=== PATIENT | male | born 1980 | race Caucasian/White ===

== ENCOUNTER 2020-08-10 01:42 | Emergency (ER) | payer OTHER, SELFPAY ==
[2020-08-10 01:51] VITALS: BP 116/73; PULSE 84; RESP 20; TEMP 37.1; O2SAT 97; BMI 27.8
--- NOTE | 2020-08-10 02:25 | ECG_ITS ---
Test Reason : CHEST PAIN Blood Pressure : / mmHG Vent. Rate : 068 BPM Atrial Rate : 068 BPM P-R Int : 134 ms QRS Dur : 086 ms QT Int : 374 ms P-R-T Axes : 012 043 034 degrees QTc Int : 397 ms Normal sinus rhythm Normal ECG When compared with ECG of 09-DEC-2017 23:05, Premature atrial complexes are no longer Present Vent. rate has decreased BY 46 BPM Borderline criteria for Anterior infarct are no longer Present ST no longer depressed in Inferior leads Nonspecific T wave abnormality has replaced inverted T waves in Inferior leads Referred By: Wendi Palacio Electronically Signed By:Jack Zavala
--- NOTE | 2020-08-10 02:25 | XR_ITS ---
EXAMINATION: XR CHEST CLINICAL INFORMATION: Cough COMPARISON: 12/10/2016 TECHNIQUE: Frontal view of the chest was obtained. FINDINGS: The lungs are clear with no focal consolidation. No evidence of pneumothorax, pulmonary edema, or pleural effusions. The cardiomediastinal silhouette is unremarkable. No acute osseous findings. XR/XR chest 1V IMPRESSION: No acute cardiopulmonary findings.
--- NOTE | 2020-08-10 02:56 | ED.GENADULT ---
HPI - General Adult General Chief complaint: General Medical Stated complaint: Sore Throat/Nausea/Chest Pain Time Seen by Provider: 08/10/20 02:04 Source: patient Mode of arrival: ambulatory History of Present Illness HPI narrative: This is a 40-year-old male with significant cardiac history with 3 stents in the LAD who presents with viral illness like symptoms with chills, sore throat, cough and is a current every day smoker. He states that he regularly gets tested for COVID but said that he began feeling more unwell since yesterday and states that he thinks he has ?bronchitis?. 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 Related Data Allergies Allergy/AdvReac Type Severity Reaction Status Date / Time No Known Allergies Allergy Verified 08/10/20 01:44 [No Known Allergies*] Review of Systems Review of Systems: Pertinent positives and negatives as stated in HPI 10 point review of systems otherwise negative. PMFSH Past Medical History Source: nursing notes reviewed Medical History HTN (hypertension) Surgical History Stented coronary artery Social History Social History Alcohol intake: never Smoking Status: Current every day smoker Smoked in Last 30 Days: Yes Use of substances other than those prescribed or required for medical reasons: Yes Substance Use Type: Marijuana Substance Use Frequency: Chronic Longstanding Last Used Substance: Hours (ago) Any prior treatment program specific to substance use: No Advance Directives: No Physical Exam Vital Signs: Vital Signs: Last Vital Signs Temp 98.6 F 08/10/20 03:58 Pulse 80 08/10/20 03:58 Resp 20 08/10/20 03:58 BP 118/72 08/10/20 03:58 Pulse Ox 97 08/10/20 03:58 Body Mass Index 27.8 VITAL SIGNS: Reviewed. GENERAL: Patient smells strongly of marijuana, well developed, well nourished, in no acute distress. HEAD: Normocephalic/atraumatic, EYES: PERRLA, EOMI EARS: Ext canals without abnormality, TMs non-bulging and non-erythematous NOSE: Nares patent bilateral OROPHARYNX: no oral lesions noted, posterior pharynx clear and non-erythematous without noted tonsillar enlargement/erythema/exudates NECK: Supple, no adenopathy LUNGS: Normal breath sounds. No adventitious sounds or accessory muscle use. SpO2<97> CARDIOVASCULAR: Regular rate and rhythm without noted murmurs, ABDOMEN: Soft, non-tender, non-distended with bowel sounds. SKIN: Inspection of the skin reveals no rashes NEUROLOGIC: Alert and oriented x 4. Course Course Course Narrative: This is a 40-year-old male with history and clinical presentation suggestive of possible viral illness versus bronchitis, and due to patient's underlying history will ensure that there are no identifiable cardiopulmonary etiologies for his presenting symptoms in addition to obtaining a COVID-19 swab. All investigations were reviewed and there were no acute findings to include COVID-19 testing was negative. Patient was informed of all results and discharged home in stable condition and stated he was feeling better. Medical Decision Making Lab Data Result diagrams: 08/10/20 02:46 08/10/20 02:46 Labs: Lab Results 08/10/20 08/10/20 08/10/20 Range/Units 02:46 02:46 02:46 WBC 7.3 (4.8-10.8) X10*3/uL RBC 4.60 (4.60-5.80) X10*6/uL Hgb 14.0 (14.0-18.0) g/dl Hct 41.7 L (42-52) % MCV 90.7 (80-98) fL MCH 30.4 (27.0-33.0) pg MCHC 33.6 (31.0-36.0) g/dl RDW 12.2 (11.0-16.0) % Plt Count 129 L (160-400) X10*3/uL MPV 11.5 (9.4-12.4) fL Immature Gran % (Auto) 0.3 (0.0-0.4) % Neut % (Auto) 63.7 (45-73) % Lymph % (Auto) 21.7 (20-40) % [place] % (Auto) 9.9 (2-11) % Eos % (Auto) 4.1 H (0-4) % Baso % (Auto) 0.3 (0-2) % Lymph # (Auto) 1.6 (1.2-4.9) X10*3/uL [place] # (Auto) 0.7 (0.1-1.2) X10*3/uL Eos # (Auto) 0.3 (0.0-0.4) X10*3/uL Baso # (Auto) 0.0 (0.0-0.2) X10*3/uL Abs Immat Gran (auto) 0.02 (0.00-0.03) X10*3/uL Absolute Neuts (auto) 4.6 (2.0-8.3) X10*3/uL Absolute Nucleated RBC 0.000 (0.0-0.012) X10*3/uL Nucleated RBC % (auto) 0.0 (0.0-0.2) /100WBC Smear Tech's Comments VERIFIED Sodium 140 (135-145) mmol/L Potassium 4.0 (3.3-5.1) mmol/l Chloride 107 (96-108) mmol/L Carbon Dioxide 24 (22-29) mmol/L Anion Gap 13 (12-20) BUN 14 (9-16) mg/dL Creatinine 0.93 (0.5-1.4) mg/dL Estim Creat Clear Calc 124.0 Estimated GFR > 60 Random Glucose 98 (60-115) mg/dL Calcium 8.6 (8.4-10.2) mg/dL Total Bilirubin 0.6 (0.0-1.0) mg/dL AST 19 (5-37) U/L ALT 29 (0-40) U/L Alkaline Phosphatase 65 (39-117) U/L Troponin I High Sens 3.7 (<3.5-35.0) ng/L Total Protein 6.9 (6.5-8.0) g/dL Albumin 4.3 (3.5-5.0) g/dL Coronavirus (PCR) (Negative) Influenza Type A (PCR) (Negative) Influenza Type B (PCR) (Negative) RSV RNA Qual (PCR) (Negative) 08/10/20 Range/Units 02:46 WBC (4.8-10.8) X10*3/uL RBC (4.60-5.80) X10*6/uL Hgb (14.0-18.0) g/dl Hct (42-52) % MCV (80-98) fL MCH (27.0-33.0) pg MCHC (31.0-36.0) g/dl RDW (11.0-16.0) % Plt Count (160-400) X10*3/uL MPV (9.4-12.4) fL Immature Gran % (Auto) (0.0-0.4) % Neut % (Auto) (45-73) % Lymph % (Auto) (20-40) % [place] % (Auto) (2-11) % Eos % (Auto) (0-4) % Baso % (Auto) (0-2) % Lymph # (Auto) (1.2-4.9) X10*3/uL [place] # (Auto) (0.1-1.2) X10*3/uL Eos # (Auto) (0.0-0.4) X10*3/uL Baso # (Auto) (0.0-0.2) X10*3/uL Abs Immat Gran (auto) (0.00-0.03) X10*3/uL Absolute Neuts (auto) (2.0-8.3) X10*3/uL Absolute Nucleated RBC (0.0-0.012) X10*3/uL Nucleated RBC % (auto) (0.0-0.2) /100WBC Smear Tech's Comments Sodium (135-145) mmol/L Potassium (3.3-5.1) mmol/l Chloride (96-108) mmol/L Carbon Dioxide (22-29) mmol/L Anion Gap (12-20) BUN (9-16) mg/dL Creatinine (0.5-1.4) mg/dL Estim Creat Clear Calc Estimated GFR Random Glucose (60-115) mg/dL Calcium (8.4-10.2) mg/dL Total Bilirubin (0.0-1.0) mg/dL AST (5-37) U/L ALT (0-40) U/L Alkaline Phosphatase (39-117) U/L Troponin I High Sens (<3.5-35.0) ng/L Total Protein (6.5-8.0) g/dL Albumin (3.5-5.0) g/dL Coronavirus (PCR) NEGATIVE (Negative) Influenza Type A (PCR) NEGATIVE (Negative) Influenza Type B (PCR) NEGATIVE (Negative) RSV RNA Qual (PCR) NEGATIVE (Negative) Discharge Plan Discharge Clinical Impression: Viral syndrome Patient Disposition: Home, Self-Care Instructions: Viral Syndrome (ED) Additional Instructions: Please do not hesitate to return to the emergency department should you experience any worsening of your symptoms. Referrals: Physician,Unknown [Primary Care Provider] - 2 days
[2020-08-10 02:57] LABS: Imm Gran Abs Auto 0.02 X10*3/uL (0.00-0.03); Imm Gran Pct Auto 0.3 % (0.0-0.4); MANUAL DIFF FLAG SCAN; PLT CLUMP 1; Red Cell Distribution Width 12.2 % (11.0-16.0); SCAN SMEAR FLAG 1
[2020-08-10 02:58] LABS: Basophils Percent Auto 0.3 % (0-2); Eosinophils Absolute Auto 0.3 X10*3/uL (0.0-0.4); Eosinophils Percent Auto 4.1 % (0-4); Hematocrit 41.7 % (42-52); Lymphocytes Absolute Auto 1.6 X10*3/uL (1.2-4.9); Lymphocytes Percent Auto 21.7 % (20-40); Mean Corpuscular HGB Conc 33.6 g/dl (31.0-36.0); Mean Corpuscular Hemoglobin 30.4 pg (27.0-33.0); Mean Corpuscular Volume 90.7 fL (80-98); Mean Platelet Volume 11.5 fL (9.4-12.4); Monocytes Absolute Auto 0.7 X10*3/uL (0.1-1.2); Monocytes Percent Auto 9.9 % (2-11); Neutrophils Absolute Auto 4.6 X10*3/uL (2.0-8.3); Neutrophils Percent Auto 63.7 % (45-73); Platelet Count 129 X10*3/uL (160-400); White Blood Count 7.3 X10*3/uL (4.8-10.8)
[2020-08-10 03:02] LABS: SLIDE REVIEW VERIFIED
[2020-08-10 03:18] LABS: Alanine Aminotransferase 29 U/L (0-40); Albumin Level 4.3 g/dL (3.5-5.0); Alkaline Phosphatase 65 U/L (39-117); Anion Gap 13 (12-20); Aspartate Amino Transferase 19 U/L (5-37); Bilirubin Total 0.6 mg/dL (0.0-1.0); Blood Urea Nitrogen 14 mg/dL (9-16); Calcium 8.6 mg/dL (8.4-10.2); Carbon Dioxide 24 mmol/L (22-29); Chloride 107 mmol/L (96-108); Estimated Glomerular Filt Rate > 60; Glucose Random 98 mg/dL (60-115); Sodium 140 mmol/L (135-145); Total Protein 6.9 g/dL (6.5-8.0)
[2020-08-10 03:20] LABS: Troponin-I High Sensitivity 3.7 ng/L (<3.5-35.0)
[2020-08-10 03:58] VITALS: BP 118/72; PULSE 80; RESP 20; TEMP 37; O2SAT 97
[2020-08-10 04:26] LABS: Influenza A PCR NEGATIVE (Negative); Influenza B PCR NEGATIVE (Negative); Resp Syncy Virus RNA Qual PCR NEGATIVE (Negative); SARS COV2 PCR INHOUSE NEGATIVE (Negative)
--- NOTE | 2020-08-10 05:08 | PC.NURSE ---
pt bp low pt given water at bedside and encouraged to drink.
[2020-08-10 06:07] VITALS: BP 138/81; PULSE 78; RESP 18; O2SAT 98
== END 2020-08-10 06:07 | disposition home or self-care (01) ==
PROVIDERS: Emergency Provider Student in an Organized Health Care Education/Training Program
DX: B34.9 Viral infection, unspecified (principal); Z20.822 Contact with and (suspected) exposure to COVID-19; I10 Essential (primary) hypertension; F17.200 Nicotine dependence, unspecified, uncomplicated
CPT/HCPCS: 0241U; 36415; 71045; 80053; 84484; 85025; 93005; 99283; 99284

== ENCOUNTER 2021-10-30 05:26 | Emergency (ER) | payer SELFPAY ==
[2021-10-30 05:33] VITALS: BP 139/73; PULSE 76; RESP 16; TEMP 36.5; O2SAT 100; BMI 28.3
[2021-10-30 05:59] LABS: Influenza A Negative (Negative); Influenza B2 Negative (Negative)
[2021-10-30 06:03] LABS: COVID-19 Test Positive (Negative); IDNOW Serial# 16C4AD1C
--- NOTE | 2021-10-30 07:17 | ED.GENADULT ---
HPI - General Adult General Chief complaint: General Medical Stated complaint: chills, headache, stomach & body aches Time Seen by Provider: 10/30/21 07:17 Source: patient Mode of arrival: ambulatory Limitations: no limitations History of Present Illness HPI narrative: 41-year-old male came in for evaluation of upper respiratory symptoms. 2 days of generalized body ache, headache, congestion, fever and chills, patient did not receive COVID vaccination, no exposure to a sick contact, no recent travel. Related Data Allergies Allergy/AdvReac Type Severity Reaction Status Date / Time No Known Allergies Allergy Verified 08/10/20 01:44 [No Known Allergies*] Review of Systems Review of Systems: All other systems are reviewed and are negative Constitutional: Reports as per HPI and Reports no additional constitutional complaints Eyes: Reports as per HPI and Reports no additional eye complaints Reports system reviewed and no additional complaints, except as documented Cardiovascular: Reports as per HPI and Reports no additional cardiovascular complaints Respiratory: Reports as per HPI and Reports no additional respiratory complaints Gastrointestinal: Reports as per HPI and Reports no additional gastrointestinal complaints Genitourinary: Reports no additional female genitourinary complaints Musculoskeletal: Reports no additional musculoskeletal complaints Skin/Breast: Reports system reviewed and no additional complaints, except as docu Psychiatric: Reports no additional psychiatric complaints Endocrine: Reports no additional endocrine complaints Hematologic/Lymphatic: Reports no additional hematologic/lymphatic complaints Allergic/Immunologic: Reports no additional allergic/immunologic complaints Reports system reviewed and no additional complaints, except as documented and Reports Abnormal speech present [facility] Past Medical History Medical History HTN (hypertension) Myocardial infarct, old Surgical History Stented coronary artery Social History Social History Alcohol intake: never Substance Use Type: Marijuana Advance Directives: No Advance Directives Information Provided: Yes Physical Exam ED Vital Signs: Vital Signs - 24 hr 10/30/21 05:33 Temperature 97.7 F Pulse Rate 76 Respiratory Rate 16 Blood Pressure 139/73 Pulse Oximetry 100 BMI result Body Mass Index 28.3 Vital signs have been reviewed as appeared to be correct. Blood pressure normal. Heart rate normal. Respiration rate normal. Temperature normal. Oxygen saturation normal. Appearance: Alert. Oriented X3. No acute distress. Head: Normal external exam. Normocephalic. Atraumatic. No Em signs noted. No raccoon eyes noted Eyes: PERRLA. EOMI. Conjunctiva and sclera normal. Eyelids normal. ENT: TM's Normal. Pharynx normal. Uvula midline. Moist mucous membranes. No trismus noted. No drooling noted. No muffled voice noted. Neck: Normal inspection. Neck supple. FROM. No adenopathy. Thyroid Normal. No meningeal signs. No neck mass noted. CVS: Normal heart rate and rhythm. Heart sound normal. No murmurs noted. Pulses normal throughout. Respiratory: No respiratory distress. Painless inspiration. Breath sounds normal. No wheezes/rales/rhonchi noted. Chest nontender. No accessory muscle usage noted or decreased air movement noted. Abdomen: Soft and nontender. Bowel sounds normal in all 4 quadrants. No distention noted. No organomegaly noted. No visible injury noted. Back: No CVA tenderness. Full range of motion noted. Skin: Skin warm and dry. Normal skin color. Normal skin turgor. No rashes/lesions/lacerations noted. Extremities: No lower extremity edema. Extremities exhibit normal range of motion. Extremities nontender. Neuro: Oriented X 3. Cranial nerve exam: II-XII are grossly intact No motor deficit. No sensory deficit. Reflexes normal. Course Course Course Narrative: Assessment and plan. 41-year-old male came in with a viral symptoms, patient tested positive for COVID 19, no respiratory distress, stable vital signs, oxygen saturation is 100% on room air. advised to use social distancing, face mask, frequent handwashing, quarantine for 10 days. Medical Decision Making Lab Data Lab results reviewed: Yes I reviewed the patient's lab results. Labs: Lab Results 10/30/21 10/30/21 Range/Units 05:39 05:39 COVID-19 (TERRELL) Positive A (Negative) COVID-19 Clin Com See Note Influenza Type A (ROMMEL) Negative (Negative) Influenza Type B (ROMMEL) Negative (Negative) Influenza A & B Note See Note Discharge Plan Discharge Clinical Impression: COVID-19 virus infection Patient Disposition: Home, Self-Care Instructions: Covid-19 Viral Syndrome and Novel Coronavirus (ED) Hey/Ath Referrals: Sera Palmer PA-C [Primary Care Provider] - Stand Alone Forms: Work/School Release
== END 2021-10-30 08:50 | disposition home or self-care (01) ==
PROVIDERS: Emergency Provider Emergency Medicine; PCP Physician Assistant Medical
DX: U07.1 COVID-19 (principal); R51.9 Headache, unspecified; M79.10 Myalgia, unspecified site
CPT/HCPCS: 87502; 87635; 99283

== ENCOUNTER 2023-05-13 07:09 | Emergency (ER) | payer OTHER, SELFPAY ==
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
[2023-05-13 07:45] VITALS: BP 127/88; PULSE 90; RESP 17; TEMP 36.3; O2SAT 97; BMI 28.6
[2023-05-13] MEDS: Ketorolac Tromethamine 15 MG/ML VIAL IM (08:28)
[2023-05-13] MEDS: Cyclobenzaprine HCl 5 MG TABLET PO (08:28)
== END 2023-05-13 08:58 | disposition home or self-care (01) ==
PROVIDERS: Emergency Provider Emergency Medicine; PCP Physician Assistant Medical
DX: S16.1XXA Strain of muscle, fascia and tendon at neck level, initial encounter (principal); V44.6XXA Car passenger injured in collision with heavy transport vehicle or bus in traffic accident, initial encounter; Y93.89 Activity, other specified; Y92.410 Unspecified street and highway as the place of occurrence of the external cause; Y99.9 Unspecified external cause status
CPT/HCPCS: 96372; 99284; J1885

== ENCOUNTER 2023-09-23 06:09 | Emergency (ER) | payer OTHER, SELFPAY ==
[2023-09-23 06:30] VITALS: BP 162/96; PULSE 95; RESP 20; TEMP 36.9; O2SAT 99; BMI 26.2
--- NOTE | 2023-09-23 07:21 | ED.GENADULT ---
HPI - General Adult General Chief complaint: Back Pain/Injury Stated complaint: back pain Time Seen by Provider: 09/23/23 07:20 Source: patient Mode of arrival: ambulatory Limitations: no limitations History of Present Illness HPI narrative: Patient is a 43 year old assigned male at with a medical history of MD and HTN presenting to the emergency department today with low back pain. Patient states that 5 days ago he lifted something heavy at work and aggravated his back. Patient denies any dizziness, lightheadedness, abdominal pain, nausea, vomiting, fever, chills, blurry vision, double vision, loss of vision, chest pain, difficulty breathing, shortness of breath, night sweats, pain with urination, increased urinary frequency, increased urinary urgency, blood in his urine or stool, syncope or a near syncopal episode, recent trauma or falls, bowel incontinence, bladder incontinence, bowel retention, bladder retention, or any other complaints at this time. Onset (ago): day(s) (5) Location: back Radiation: back Severity: mild Severity scale (1-10): 3 Quality: aching and dull Pain Consistency: constant Relieving factors: none Exacerbating factors: none Associated symptoms: denies other symptoms Treatments prior to arrival: none Related Data Previous Rx's Medication Instructions Recorded cyclobenzaprine 5 mg tablet 5 mg PO TID PRN muscle spasm 7 05/13/23 days #21 tabs cyclobenzaprine 5 mg tablet 5 mg PO TID PRN muscle spasm 7 09/23/23 days #21 tabs Allergies Allergy/AdvReac Type Severity Reaction Status Date / Time ibuprofen [From Motrin] Allergy Unknown Verified 09/23/23 08:06 Review of Systems Constitutional: Constitutional: Reports no additional constitutional complaints, Denies chills, Denies fever(s) and Denies night sweats Eyes: Eyes: Reports no additional eye complaints, Denies blurry vision, Denies change in vision, Denies diplopia, Denies eye discharge, Denies loss of vision and Denies eye pain ENT: Denies dizziness Cardiovascular: Cardiovascular: Reports no additional cardiovascular complaints, Denies chest pain, Denies lightheadedness, Denies Loss of Consciousness and Denies dyspnea Respiratory: Respiratory: Reports no additional respiratory complaints and Denies dyspnea Gastrointestinal: Gastrointestinal: Reports no additional gastrointestinal complaints, Denies abdominal pain, Denies melena, Denies hematochezia, Denies change in bowel habits and Denies change in stool character Genitourinary: Genitourinary: Reports no additional male genitourinary complaints, Denies hematuria, Denies oliguria, Denies difficulty urinating, Denies dysuria, Denies urinary frequency, Denies urinary hesitancy, Denies urinary incontinence and Denies urinary urgency Musculoskeletal: Musculoskeletal: Reports no additional musculoskeletal complaints, Reports back pain, Denies numbness and Denies tingling Neurologic: Denies dizziness, Denies loss of vision, Denies numbness and Denies tingling Psychiatric: Psychiatric: Reports no additional psychiatric complaints Endocrine: Endocrine: Reports no additional endocrine complaints Hematologic/Lymphatic: Hematologic/Lymphatic: Reports no additional hematologic/lymphatic complaints Allergic/Immunologic: Allergic/Immunologic: Reports no additional allergic/immunologic complaints PMFSH Past Medical History Attestation statement: The following information was validated with the patient. Source: old records reviewed and nursing notes reviewed Medical History Myocardial infarct, old HTN (hypertension) Surgical History Stented coronary artery Social History Social History Alcohol intake: never Smoked in Last 30 Days: Yes Use of substances other than those prescribed or required for medical reasons: No Substance Use Type: Marijuana Advance Directives: No Advance Directives Information Provided: No Physical Exam ED Vital Signs: Vital Signs - 24 hr 09/23/23 06:30 Temperature 98.4 F Pulse Rate 95 Respiratory Rate 20 Blood Pressure 162/96 H Pulse Oximetry 99 Oxygen Delivery Method Room Air BMI result Body Mass Index 26.2 Const General: cooperative, no acute distress, alert and awake Nutritional Appearance: well nourished Orientation/consciousness: patient oriented x3 Limitations: no limitations HENMT Head: Yes normal to inspection and Yes atraumatic Ears: hearing grossly normal bilaterally and external ears normal General nose exam: Normal external nose present, no nasal discharge noted and no epistaxis Face and sinus: Yes normal facial exam, No abrasion and No laceration Mouth: Normal oral and palatal mucosa present, no drooling and no muffled voice Eyes General: appearance normal, both eyes and all related structures Periorbital: periorbital findings normal Eyelids: Yes eyelids normal Conjunctivae: conjunctivae normal Pupils: Equal, round and reactive pupils present EOM: EOMs intact bilaterally Neck Neck: Yes normal visual inspection, Yes full ROM and Yes no lymphadenopathy Chest Chest palpation & inspection: normal inspection of the chest Resp Effort & Inspection: normal respiratory effort and able to speak in complete sentences GI Inspection: Yes normal to inspection Neuro General: patient oriented x3 and moves all extremities Cranial nerves: Yes Equal, round and reactive pupils present Cognition (Neuro): normal cognition Motor exam (neuro): 5/5 motor strength present throughout Sensory Exam: Normal double simultaneous stimulation for sensation Coordination: [id number] test normal Extrem General: Yes normal to inspection, Yes full ROM and Yes capillary refill normal Psych Appearance: grossly normal Mental Status: mental status grossly normal Affect: normal affect Attitude: cooperative Thought process: Normal thought process present Thought content: Normal thought content present Insight: Good insight present (Psych) Medications Administered Discontinued Medications Generic Name Dose Route Start Last Admin Trade Name Freq PRN Reason Stop Dose Admin Cyclobenzaprine HCl 5 mg 09/23/23 07:43 09/23/23 08:06 Cyclobenzaprine Hcl 5 Mg Tablet PO 09/23/23 07:44 5 mg ONCE ONE Administration Medical Decision Making Medical Decision Making [facility] Narrative: Patient is a 43 year old assigned male at with a history of MD and HTN presenting to the emergency department today with low back pain. Patient's physical exam was unremarkable. I explained my physical exam findings to the patient. I answered all questions asked by the patient. Patient received flexeril which he stated helped his symptoms significantly. I stressed the importance of the patient taking his medication as prescribed. I stressed the importance of the patient following up with his primary care provider, orthopedics, and given this was a work place injury - work connection. I stressed the importance of the patient returning to the emergency department immediately if his symptoms were to worsen or if he were to develop any dizziness, shortness of breath, difficulty breathing, chest pain, blurry vision, loss of vision, nausea, vomiting, abdominal pain, fever, chills, or any other complaints. Patient [and the patient's] verbalized agreement and understanding with this treatment plan and discharge. Differential Diagnosis Differential Diagnoses: The differential diagnosis associated with the presentation includes Low back pain Lumbar strain Admission/Observation Consideration of admission/observation: Escalation of care including admission/observation considered Patient would have been admitted to the hospital had his clinical presentation warranted hospital admission. Tests considered The following testing was considered but not selected: I considered an x-ray of the lumbar spine however, given the patient's current clinical presentation and mechanism of injury, it is not warranted at this time. I discussed this with the patient who verbalized agreement and understanding with this. Prescription Management I considered prescription management with: Pain Medication (pain medication prescribed) Discharge Plan Discharge Clinical Impression: Strain of lumbar region Patient Disposition: Home, Self-Care Instructions: Back Pain (ED), Lower Back Exercises (ED) Additional Instructions: Follow up with your primary care provider, an orthopedic provider, and work connection. Return to the emergency department immediately if your symptoms worsen or if you develop any dizziness, shortness of breath, difficulty breathing, chest pain, blurry vision, loss of vision, nausea, vomiting, abdominal pain, fever, chills, back pain, or any other complaints. Prescriptions: New cyclobenzaprine 5 mg tablet 5 mg PO TID PRN (Reason: muscle spasm) 7 Days Qty: 21 0RF No Action cyclobenzaprine 5 mg tablet 5 mg PO TID PRN (Reason: muscle spasm) 7 Days Qty: 21 0RF Referrals: [facility] [place] Family Medicine [Provider Group] (Call to establish and follow up with a primary care provider. If you already have a primary care provider, please follow up with them.) [facility] [place] [facility] [Provider Group] (Call to establish and follow up with a primary care provider. If you already have a primary care provider, please follow up with them.) [facility] [place] Primary Care,Ruel [Provider Group] (Call to establish and follow up with a primary care provider. If you already have a primary care provider, please follow up with them.) [facility] [place] [facility] [Provider Group] (Call to establish and follow up with an orthopedic provider.) [facility] [Provider Group] (Given this was a work place injury, call to establish and follow up with work connection.) Stand Alone Forms: Work/School Release Interventions: ED Discharge Assessment Last Done: 09/23/23 08:22 Discharge Date/Time: 09/23/23 08:23 Print Language: Amharic
[2023-09-23] MEDS: Cyclobenzaprine HCl 5 MG TABLET PO (08:06)
== END 2023-09-23 08:23 | disposition home or self-care (01) ==
PROVIDERS: Emergency Provider Emergency Medicine Emergency Medical Services
DX: S39.012A Strain of muscle, fascia and tendon of lower back, initial encounter (principal); I10 Essential (primary) hypertension; X50.0XXA Overexertion from strenuous movement or load, initial encounter; X50.3XXA Overexertion from repetitive movements, initial encounter; Y93.9 Activity, unspecified; Y92.9 Unspecified place or not applicable; Y99.0 Civilian activity done for income or pay
CPT/HCPCS: 99283; 99284

== ENCOUNTER 2025-03-17 01:48 | Emergency (ER) | payer OTHER, SELFPAY ==
[2025-03-17 01:50] VITALS: BP 127/92; PULSE 87; RESP 20; TEMP 36.6; O2SAT 98; BMI 31.0
--- NOTE | 2025-03-17 02:14 | ED_ITS ---
HPI - General Adult General Chief complaint: Dental/Oral Stated complaint: right neck + mouth pain Time Seen by Provider: 03/17/25 02:07 Source: patient Mode of arrival: ambulatory Limitations: no limitations History of Present Illness ED Provider: Dr. Francisca Lugo HPI narrative: patient comes to the emergency room complaining of bilateral lymphadenopathy. Patient states that 1 week ago he was treated in [place] for a dental abscess with amoxicillin. Patient states that the dental pain is not as bad now, however, now he has bilateral lymphadenopathy. Denies any fever or chills at this time. Related Data Previous Rx's ?Medication ?Instructions ?Recorded cyclobenzaprine 5 mg tablet 5 mg PO TID PRN muscle spa sm 7 05/13/23 days #21 tabs cyclobenzaprine 5 mg tablet 5 mg PO TID PRN muscle spa sm 7 09/23/23 days #21 tabs acetaminophen 500 mg tablet 500 mg PO Q6H PRN fever or pain 03/17/25 #30 tabs Allergies Allergy/AdvReac Type Severity Reaction Status Date / Time ibuprofen (From Motrin) Allergy Unknown Verified 03/17/25 01:54 Review of Systems 2 Review of Systems: Constitutional : No Weight loss, No Fever, No Chills, No Night Sweats, No Fatigue, No Malaise ENT/Mouth : Complaining of dental pain that was treated with antibiotics in [place] a week ago, No Hearing loss, No Ear Pain, No Nasal Congestion, No Sinus Pain, No Hoarseness, No sore throat, No Rhinorrhea, No Swallowing Difficulty Eyes: No Eye Pain, No Swelling, No Redness, No Foreign Body, No Discharge, No Vision Changes Cardiovascular : No Chest Pain, No SOB, No Dyspnea on Exertion, No Orthopnea, No Edema, No Palpitations Respiratory : No Cough, No Sputum, No Wheezing, No Smoke Exposure, No Dyspnea Gastrointestinal : No Nausea, No Vomiting, No Diarrhea, No Constipation, No abdominal Pain, No Hematochezia, No Melena Genitourinary : no irregular bleeding, No Dysuria, No Urinary Frequency, No Hematuria, No Urinary Incontinence, No Urgency, No Flank Pain, No Urinary Flow Changes, No Hesitancy Musculoskeletal : No joint pain, No Myalgias, No Joint Swelling Skin : No Skin Lesions, No rash Neuro : No Weakness, No Numbness, No Paresthesias, No Loss of Consciousness, No Dizziness, No Headache Psych : No Anxiety/Panic, No Depression, No SI/HI/AH/VH, No Social Issues, Heme/Lymph: No Bruising, No Bleeding, complaining of bilateral neck Lymphadenopathy Endocrine : No Polyuria, No Polydipsia, No Temperature Intolerance PMF Past Medical History Medical History Myocardial infarct, old HTN (hypertension) Surgical History Stented coronary artery Social History Social History Alcohol intake: never Smoked in Last 30 Days: Yes Use of substances other than those prescribed or required for medical reasons: No Substance Use Type: Marijuana Advance Directives: No Do you have a plan to hurt others: No Plan Physical Exam ED Exam Exam: Appearance: Alert. Oriented X3. No acute distress. well-appearing Eyes: Pupils equal, round and reactive to light. ENT: Pharynx normal. salivary gland stone under the tongue Neck: Normal inspection. Neck supple. bilateral lymphadenopathy,. No crepitus CVS: Normal heart rate and rhythm. Pulses normal. Normal S1 and S2 Respiratory: No respiratory distress. Breath sounds normal. No Wheezing. No rales Abdomen: Soft and nontender. No rigidity. No distention. Skin: Skin warm and dry. Normal skin color. Normal skin turgor. Extremities: No lower extremity edema. No Lacerations. No Rash Neuro: Oriented X 3. No motor deficit. No sensory deficit. Moving all extremities. No slurred speech. CN 2 through 12 grossly intact Psych: calm, cooperative, normal affect Vital Signs: Vital Signs - 24 hr 03/17/25 01:50 Temperature 97.8 F Pulse Rate 87 Respiratory Rate 20 Blood Pressure 127/92 H Pulse Oximetry 98 Oxygen Delivery Method Room Air BMI result Body Mass Index 31.0 Course Course Course Narrative: patient was recently treated for a tooth infection in [place], given a week of treatment with the amoxicillin. Today complaining of bilateral lymphadenopathy We will obtain labs Medical Decision Making Medical Decision Making MDM Narrative: My interpretation of labs: No significant abnormality in patient's hematology and chemistry, serology is positive for COVID, negative for influenza and strep. This is likely the reason the patient is having lymphadenopathy. patient has no shortness of breath, no oxygen desaturation. Differential Diagnosis Differential Diagnoses: The differential diagnosis associated with the presentation includes ( As above) Lab Data MDM Lab Attestation statement: I reviewed the patient's lab results. 03/17/25 02:23 03/17/25 02:23 Labs: Lab Results 03/17/25 Range/Units 02:23 WBC 5.9 (4.8-10.8) X10*3/uL RBC 4.56 L (4.60-5.80) X10*6/uL Hgb 13.6 L (14.0-18.0) g/dl Hct 38.7 L (42.0-52.0) % MCV 84.9 (80.0-98.0) fL MCH 29.8 (27.0-33.0) pg MCHC 35.1 (31.0-36.0) g/dl RDW 12.5 (11.0-16.0) % Plt Count 154 L (160-400) X10*3/uL MPV 11.2 (9.4-12.4) fL Immature Gran % (Auto) 0.2 (0.0-0.4) % Neut % (Auto) 54.7 (45-73) % Lymph % (Auto) 33.5 (20-40) % [place] % (Auto) 7.7 (2-11) % Eos % (Auto) 3.6 (0-4) % Baso % (Auto) 0.3 (0-2) % Lymph # (Auto) 2.0 (1.2-4.9) X10*3/uL [place] # (Auto) 0.5 (0.1-1.2) X10*3/uL Eos # (Auto) 0.2 (0.0-0.4) X10*3/uL Baso # (Auto) 0.0 (0.0-0.2) X10*3/uL Abs Immat Gran (auto) 0.01 (0.00-0.03) X10*3/uL Absolute Neuts (auto) 3.2 (2.0-8.3) x10*3/uL Absolute Nucleated RBC 0.000 (0.0-0.012) X10*3/uL Nucleated RBC % (auto) 0.0 (0.0-0.2) /100WBC Sodium 139 (135-145) mmol/L Potassium 4.0 (3.3-5.1) mmol/L Chloride 110 H (96-108) mmol/L Carbon Dioxide 22 (22-29) mmol/L Anion Gap 11 L (12-20) BUN 19 H (9-16) mg/dL Creatinine 0.97 (0.5-1.4) mg/dL Estim Creat Clear Calc 118.8 Estimated GFR > 60 Random Glucose 98 (60-115) mg/dL Calcium 8.8 (8.4-10.2) mg/dL Total Bilirubin 0.5 (0.0-1.0) mg/dL Direct Bilirubin 0.1 (0.0-0.5) mg/dL AST 26 (5-37) U/L ALT 19 (0-40) U/L Alkaline Phosphatase 58 (39-117) U/L C-Reactive Protein 0.42 (< or = 0.50) mg/dL Total Protein 7.0 (6.5-8.0) g/dL Albumin 4.3 (3.5-5.0) g/dL COVID-19 (TERRELL) Positive A (Negative) COVID-19 Clin Com See Note Influenza Type A (ROMMEL) Negative (Negative) Influenza Type B (ROMMEL) Negative (Negative) Influenza A & B Note See Note S. pyogenes GrpA ROMMEL Negative (Negative) Discharge Plan Discharge Clinical Impression: COVID-19 virus infection, Lymphadenopathy Patient Disposition: Home, Self-Care Instructions: COVID-19 (Coronavirus Disease 2019) (ED) Additional Instructions: Please follow-up with your primary care physician tomorrow. If you have any worsening or new symptoms, please return to the emergency room or call 911 Prescriptions: New acetaminophen 500 mg tablet 500 mg PO Q6H PRN (Reason: fever or pain) Qty: 30 0RF No Action cyclobenzaprine 5 mg tablet 5 mg PO TID PRN (Reason: muscle spasm) 7 Days Qty: 21 0RF cyclobenzaprine 5 mg tablet 5 mg PO TID PRN (Reason: muscle spasm) 7 Days Qty: 21 0RF Stand Alone Forms: Work/School Release Print Language: Ukrainian
--- OUTSIDE RECORDS SUMMARY | 2025-03-17 02:19 | XMS_ITS | Encounter Summary ---
Author Organization [facility] Address [address] [place] [phone] Phone Care Team Providers Care Oracle Database Manager Name Role Phone Mercy Masterson MD Primary Care Provider [phone] Mercy Masterson MD Primary Care Provider Pcp, Unknown Primary Care Provider Unavailabl e Encounter Details Date Type Department Care Team (Late st Contact Info) Description 06/25/2018 Ancillary Orders Virtual Department [address] [place] [address] Kin Garcia MD [address] [place] [address] [phone] [email or web address] Solitary pulmonary nodule Social History Tobacco Use Types Packs/Day Years Used Date Smoking Tobacco: Every Day Cigarettes Smokeless Tobacco: Never Alcohol Use Standard Drinks/Week Comments No 0 (1 standard drink = 0.6 oz pur e alcohol) Sex and Gender Information Value Date Recorded Sex Assigned at Male 12/10/2017 5:49 AM EDT Legal Sex Male 9:19 PM EDT Gender Identity Male 12/10/2017 5:49 AM EDT Sexual Orientation Straight 12/10/2017 5: 49 AM EDT documented as of this encounter Plan of Treatment Not on file documented as of this encounter Visit Diagnoses Diagnosis Solitary pulmonary nodule documented in this encounter Additional Health Concerns Infection Onset Date Last Indicated Resolved Time CoV-Risk 07/03/2023 07/03/2023 07/14/2023 1:23 AM EST documented as of this encounter Care Teams Oracle Database Manager Relationship Specialty Start Date End Date Mercy Masterson MD [email or web address] PCP - General Family Medicine 11/17/17 11/16/19 Mercy Masterson MD [email or web address] PCP - General Family Medicine 11/17/19 07/02/23 Pcp, Unknown PCP - General 07/03/23 documented as of this encounter Additional Source Comments The information contained in this document represents components of the legal health record. It is not the complete legal health record.[facility]
--- OUTSIDE RECORDS SUMMARY | 2025-03-17 02:19 | XMS_ITS | Clinical Summary ---
Author Organization [facility] Address [address] [address] Phone Care Team Providers Care Development Architect Name Role Phone Pcp, Unknown Primary Care Provider Unavailabl e Allergies No known active allergies Medications nicotine (NICODERM CQ) 14 mg/[address] 1 patch onto the skin daily. 8 Active Additional Information Patient not taking.Reported on 07/03/2023 atorvastatin (LIPITOR) 80 MG tablet Take 1 tablet (80 mg total) by mouth daily. 8 Active Additional Information Patient not taking.Reported on 07/03/2023 clopidogrel (PLAVIX) 75 mg tablet Take 1 tablet (75 mg total) by mouth daily. 90 tablet 3 8 Active Additional Information Patient not taking.Reported on 07/03/2023 atorvastatin (LIPITOR) 80 MG tablet Take 1 tablet (80 mg total) by mouth daily. 30 tablet 11 8 Active Additional Information Patient not taking.Reported on 07/03/2023 lisinopril (PRINIVIL,ZESTR IL) 5 MG tablet Take 1 tablet (5 mg total) by mouth daily. 90 tablet 3 8 Active Additional Information Patient not taking.Reported on 07/03/2023 metoprolol succinate (TOPROL-XL) 25 MG 24 hr tablet Take 1 tablet (25 mg total) by mouth daily. 30 tablet 6 8 Active Additional Information Patient not taking.Reported on 07/03/2023 aspirin 81 MG EC tablet Take 1 tablet (81 mg total) by mouth daily. 8 Active Additional Information Patient not taking.Reported on 07/03/2023 azithromycin (ZITHROMAX) 250 MG tablet Take 2 tablets on day 1, then 1 tablet each day thereafter 6 tablet 3 Active Active Problems Problem Noted Date Diagnosed Date NSTEMI (non-ST elevated myocardial infarction) 0 12/10/2017 Assessment & Plan (12/10/2017 6:07 AM EDT): Cardiology was consulted in the ER -Hep Gtt -ASA -High Dose lipitor -Ca rodrigue / nitrates as pt just used cocaine bb is contraindicated. -Cards to follow querry stress vs. Cath vs obs given cocaine use. Social History Tobacco Use Types Packs/Day Years Used Date Smoking Tobacco: Every Day Cigarettes Smokeless Tobacco: Never Tobacco Cessation:Ready to Q uit: Yes; Counseling Given: Yes Alcohol Use Standard Drinks/Week Comments No 0 (1 standard drink = 0.6 oz pur e alcohol) Education Answer Date Recorded Are you interested in more education? Not on pepito e 11/08/2022 Are you concerned about learning? Not on file 11/08/2022 No 11/08/2022 No 11/08/2022 Digital Access Answer Date Recorded No 12/09/2022 No 12/09/2022 Reliable internet access at home? Not on file 12/09/2022 Device with a working camera? Not on file Intimate Partner Violence Answer Date R ecorded Are you denied basic needs s [facility] as food, clothing, or medical care? No 07/03/2023 In the past 12 months have y ou been in a relationship with a person who hurts, threatens, or tries to control you? No 07/03/2023 Are you denied basic needs s [facility] as food, clothing, or medical care? No 07/03/2023 In the past 12 months have y ou been in a relationship with a person who hurts, threatens, or tries to control you? No 07/03/2023 Sex and Gender Information Value Date Recorded Sex Assigned at Male 12/10/2017 5:49 AM EDT Legal Sex Male 9:19 PM EDT Gender Identity Male 12/10/2017 5:49 AM EDT Sexual Orientation Straight 12/10/2017 5: 49 AM EDT Last Filed Vital Signs Vital Sign Reading Time Taken Comments Blood Pressure 141/98 07/03/2023 9:49 AM EST Pulse 76 07/03/2023 9:49 AM EST Temperature 36.3 C (97.3 F) 07/03/2023 9:49 AM EST Respiratory Rate 20 07/03/2023 9:49 AM EST Oxygen Saturation 96% 07/03/2023 9:49 AM EST Inhaled Oxygen Concentration - - Weight 90.7 kg (200 lb) 07/03/2023 7:11 AM EST Height 177.8 cm (5' 10 ) 07/03/2023 7:11 AM EST Body Mass Index 28.7 07/03/2023 7:11 AM EST Plan of Treatment Health Maintenance Due Date Last Done Comments Adult Td,Tdap Booster 1982 DEPRESSION SCREENING 1994 SMOKING Hx and SMOKELESS TOBACCO SCREENING 1995 HEPATITIS C SCREENING 2000 HIV ONE-TIME SCREENING (18-6 5 YEARS) 2000 PNEUMOCOCCAL VACCINES (0-49 years) (1 of 2 - PCV) 2001 LIPID PANEL 12/10/2022 12/10/2017 CREATININE LEVEL 07/03/2024 07/03/2023, 12/10/2017 POTASSIUM LEVEL 07/03/2024 07/03/2023, 12/10/2017 INFLUENZA VACCINE (#1) 2025 COVID-19 VACCINE (1 - 2023-2 5 season) 2025 SCREENING FOR DIABETES 07/03/2026 07/03/2023 HEPATITIS A VACCINES Aged Out No long er eligible based on patient's age to complete this topic HIB VACCINES Aged Out No longer eligi ble based on patient's age to complete this topic MENINGOCOCCAL VACCINES (ACWY) Aged Out No longer eligible based on patient's age to complete this topic MENINGOCOCCAL VACCINES (B) Aged Out N o longer eligible based on patient's age to complete this topic Medical Devices Not on file Procedures Procedure Name Priority Date/Time Associated Diagnosis Comments BASIC METABOLIC PANEL STAT 07/03/2023 7:30 AM EST LIPID PANEL STAT 12/10/2017 6:18 AM EDT from Last 3 Months or Most Recently Relevant to Health Maintenance Results * (ABNORMAL) Basic metabolic panel (07/03/2023 7:30 AM EST) SODIUM 141 133 - 146 mmol/L [facility] CHLORIDE 105 96 - 108 mmol/L [facility] POTASSIUM 4.4 3.3 - 5.1 mmol/L [facility] CO2 26 21 - 35 mmol/L [facility] BUN 15 6 - 19 mg/dL [facility] CREATININE 1.00 0.5 - 1.5 mg/dL [facility] GLUCOSE 108(H) 70 - 99 mg/dL [facility] CALCIUM 9.5 8.4 - 10.3 mg/dL [facility] EGFR 97 >59 mL/min/1.7 3m2 [facility] Comment:Estimated glomerular filtration rate calculated using the CKD-EPI refit equation. ANION GAP 14 10 - 20 mmol/L [facility] Blood 07/03/2023 7:30 AM EST 07/03/2023 7:38 AM EST us Zack Fraser MD LAB BLOOD ORDERABLES Final Resu lt [address] [id number] * (ABNORMAL) Lipid panel (12/10/2017 6:18 AM EDT) HDL 26 mg/dL [facility] Comment: Interpretation: Risk Level Males Decreased >45 mg/dL Average 40-45 mg/dL Increased <40 mg/dL CHOLESTEROL 188 0 - 240 mg/dL [facility] TRIGLYCERIDES 201(H) 30 - 160 mg/dL [facility] LDL 122 50 - 129 mg/dL [facility] Comment: LDL levels in terms of risk for coronary heart disease: <100 mg/dL: Optimal 100-129 mg/dL: Near or above optimal 130-159 mg/dL: Borderline high 160-189 mg/dL: High >190 mg/dL: Very High CARDIAC RISK RATIO 7.2(H) 3.4 - 5.0 C [facility] Blood 12/10/2017 6:18 AM EDT 12/10/2017 6:45 AM EDT Miya Gutierrez MD LAB BLOOD ORDERABLES Final Result [address] [address] from Last 3 Months or Most Recently Relevant to Health Maintenance Insurance SAFETY NET PARTIAL PARTIAL NET PARTIAL HEALTH SAFETY NET PARTIAL HEALTH SAFETY NET PARTIAL HEALTH SAFETY NET PARTIAL HEALTH SAFETY NET PARTIAL HEALTH SAFETY NET PARTIAL HEALTH SAFETY NET PARTIAL Advance Directives For more information, please contact: [phone] (9AM - 5PM [place], Friday-Friday) * Full Code (Presumed) (Latest Code Status on File) Date Activated Date Inactivated Comments 12/10/2017 6:05 AM 12/10/2017 6:33 PM Care Teams Development Architect Relationship Specialty Start Date End Date Pcp, Unknown PCP - General 07/03/23 Additional Source Comments The information contained in this document represents components of the legal health record. It is not the complete legal health record.[facility]
--- OUTSIDE RECORDS SUMMARY | 2025-03-17 02:19 | XMS_ITS | Encounter Summary ---
Author Organization [facility] Address [address] [address] Phone Care Team Providers Care Weight Control Engineer Name Role Phone Mercy Masterson MD Primary Care Provider [phone] Mercy Masterson MD Primary Care Provider [phone]- [phone] Pcp, Unknown Primary Care Provider Unavailabl e Encounter Details Date Type Department Care Team (Latest Contact Info) Description 05/26/2018 Ancillary [facility] [address] [place] [address] Nick Morejon MD [address] [place] [id number] [email or web address] Coronary artery disease without angina pectoris, unspecified vessel or lesion type, unspecified whether [place] or transplanted heart; Cardiomyopathy, unspecified type Social History Tobacco Use Types Packs/Day Years [...] as of this encounter Visit Diagnoses Diagnosis Coronary artery disease without angina pectoris, unspecified vessel or lesion type, unspecified whether [place] or transplanted heart Cardiomyopathy, unspecified type documented in this encounter Additional Health Concerns Infection Onset Date Last Indicated Resolved Time CoV-Risk 07/03/2023 07/03/2023 07/14/2023 1:23 AM EST documented as of this encounter Care Teams Weight Control Engineer Relationship Specialty Start Date End Date Mercy Masterson MD [email or web address] PCP - General Family Medicine 11/17/17 11/16/19 Mercy Masterson MD [email or web address] PCP - General Family Medicine 11/17/19 07/02/23 Pcp, Unknown PCP - General 07/03/23 documented as of this encounter Additional Source Comments The information contained in this document represents components of the legal health record. It is not the complete legal health record.[facility]
--- OUTSIDE RECORDS SUMMARY | 2025-03-17 02:19 | XMS_ITS | Encounter Summary ---
Author Organization [facility] Address [address] [address] Phone Care Team Providers Care Manager Of Selection And Assessment Name Role Phone Mercy Masterson MD Primary Care Provider [phone] Mercy Matserson MD Primary Care Provider Pcp, Unknown Primary Care Provider Unavailabl e Encounter Details Date Type Department Care Team (Late st Contact Info) Description 11/28/2017 Procedure Pass [facility] Endoscopy Admitting Dept Virtual Department [address] [place] [address] Social History Tobacco Use Types Packs/Day Years Used Date Smoking Tobacco: Never Assessed Sex and Gender Information Value Date Recorded Sex Assigned at Male 12/10/2017 5:49 AM EDT Legal Sex Male 9:19 PM EDT Gender Identity Male 12/10/2017 5:49 AM EDT Sexual Orientation Straight 12/10/2017 5: 49 AM EDT documented as of this encounter Plan of Treatment Not on file documented as of this encounter Visit Diagnoses Not on filedocumented in this encounter Additional Health Concerns Infection Onset Date Last Indicated Resolved Time CoV-Risk 07/03/2023 07/03/2023 07/14/2023 1:23 AM EST documented as of this encounter Care Teams Manager Of Selection And Assessment Relationship Specialty Start Date End Date Mercy Masterson MD PCP - General Family Medicine 11/17/17 11/16/19 Mercy Masterson MD [email or web address] PCP - General Family Medicine 11/17/19 07/02/23 Pcp, Unknown PCP - General 07/03/23 documented as of this encounter Additional Source Comments The information contained in this document represents components of the legal health record. It is not the complete legal health record.[facility]
--- OUTSIDE RECORDS SUMMARY | 2025-03-17 02:19 | XMS_ITS | Encounter Summary ---
Author Organization [facility] Address [address] [place] [address] Phone Care Team Providers Care Aquatics Coordinator Name Role Phone Mercy Masterson MD Primary Care Provider [phone] Mercy Masterson MD Primary Care Provider [phone]- [phone] Pcp, Unknown Primary Care Provider Unavailabl e Reason for Referral * Consultation (Elective) - Closed Specialty Diagnoses / Procedures Referred By Phyllis ram Referred To Contact Cardiac Rehabilitation Diagnoses NSTEMI (non-ST elevated myocardial infarction) Kin Garcia MD Phone: tel: fax: [email or web address] [facility] [address] [place] [address] Phone: tel: Referral ID Status Reason Start Date Expiration Date Visits Re quested Visits Authorized [id number] Closed 02/03/2018 02/03/2019 1 1 Encounter Details Date Type Department Care Team (Late st Contact Info) Description 02/03/2018 Transcribe Orders Virtual Department [address] [place] [id number] Kin Garcia MD [address] [place] [phone] NSTEMI (non-ST elevated myocardial infarction) (Primary Dx) Social History Tobacco Use Types Packs/Day Years [...] as of this encounter Plan of Treatment Scheduled Referrals Name Type Priority Associated Diagnoses Order Schedule Ambulatory referral to [facility] Cardiac Rehab Outpatient Referral Routine NSTEMI (non-ST elevated myocardial infarction) Ordered: 02/03/2018 documented as of this encounter Visit Diagnoses Diagnosis NSTEMI (non-ST elevated myocardial infarction)- Primary Acute myocardial infarction, subendocardial infarction, episode of care unspecified documented in this encounter Additional Health Concerns Infection Onset Date Last Indicated Resolved Time CoV-Risk 07/03/2023 07/03/2023 07/14/2023 1:23 AM EST documented as of this encounter Care Teams Aquatics Coordinator Relationship Specialty Start Date End Date Mercy Masterson MD PCP - General Family Medicine 11/17/17 11/16/19 Mercy Masterson MD PCP - General Family Medicine 11/17/19 07/02/23 Pcp, Unknown PCP - General 07/03/23 documented as of this encounter Additional Source Comments The information contained in this document represents components of the legal health record. It is not the complete legal health record.[facility]
--- OUTSIDE RECORDS SUMMARY | 2025-03-17 02:19 | XMS_ITS | Encounter Summary ---
Author Organization [facility] Address [address] [address] Phone Care Team Providers Care Water Jet Loom Fixer Name Role Phone Mercy Masterson MD Primary Care Provider [phone] Mercy Masterson MD Primary Care Provider [phone] Pcp, Unknown Primary Care Provider Unavailabl e Reason for Referral * Outpatient Procedure - Closed Specialty Diagnoses / Procedures Referred By Phyllis ram Referred To Contact Diagnoses Ischemic cardiomyopathy Procedures Adult Echo TTE Sera Palmer PA Phone: tel: fax: Referral ID Status Reason Start Date Expiration Date Visits Re quested Visits Authorized [id number] Closed 08/13/2018 08/13/2019 1 1 Encounter Details Date Type Department Care Team (Latest Contact Info) Description 08/13/2018 Ancillary Orders Virtual Department [address] [place] [address] Sera Palmer PA [address] [place] [id number] Ischemic cardiomyopathy Social History Tobacco Use Types Packs/Day Years [...] on file documented as of this encounter Results * TTE COMPREHENSIVE (08/25/2018 8:47 AM EST) Body Surface Area 2.2 m2 Height 178 m Weight 106 kg Systolic BP 98 mmHg Diastolic BP 82 mmHg Interventricular Septum Thickness 8 mm Left Ventricle Internal Diameter End Diastole 59 42 - 58 mm Left Ventricle Internal Diameter End Systole 39 25 - 40 mm Left Ventricular Outflow Tract Diameter 21.0 mm LVOT VTI REST 161.00 mm Left Ventricular Outflow Tract Velocity 0.7 m/s Left Ventricular Outflow Tract Gradient at Rest 2.00 mmHg Left Ventricular Posterior Wall Thickness 10 mm Ejection Fraction 45 50 - 75 Percent Left Atrium Dimension Anterior-Posterior 36 15 - 40 mm Aortic Valve Peak Velocity 111.0 cm/s Aortic Valve Peak Gradient 5.00 mmHg Aortic Sinus Diameter 28 mm Ascending Aorta Diameter 28 mm Inferior Vena Cava Diameter 15 0.0 - 21 mm Mitral Valve Deceleration Time 176.00 ms Mitral Valve A Wave Speed 66.9 cm/s Mitral Valve E Wave Speed 69.4 cm/s Right Ventricle Basal Diameter 30.70 25 - 41 mm Tricuspid Valve Peak Velocity 0.9 m/s Raw LV EF% 56 % Right Ventricle Peak Systolic Pressure 6 mmHg Right Atrium Pressure Estimated 3 mmHg Right Ventricle to Right Atrium Pressure Gradient 3 mmHg Aortic Valve Sinus Index 1 13 20 - 32 mm Ascending Aorta Diameter 13 mm Aortic Sinus Index 13 mm Ascending Aorta Index 13 mm Left Atrial Volume 39 mL Left Atrial Volume Index 17.73 mL/m2 Anatomical Region Laterality Modality Heart Ultrasound Narrative 08/25/2018 1:40 PM EST Left ventricular systolic function is mildly impaired. There are segmental left ventricular wall motion abnormalities present (see wall motion plot). The wall motion abnormality involves the apical location. The estimated ejection fraction is 45% (Normal 50-75%). Doppler profiles appear consistent with impaired left ventricular relaxation (a sign of diastolic dysfunction). There is trace mitral regurgitation Normal pulmonary pressure Compared to a prior TTE from 12/10/2017 no important changes. LVEF may be slightly better Left Ventricle The left ventricular cavity size and wall thickness are normal. Left ventricular systolic function is mildly impaired. There are segmental left ventricular wall motion abnormalities present (see wall motion plot). The wall motion abnormality involves the apical location. The estimated ejection fraction is 45% (Normal 50- 75%). The left ventricular ejection fraction was measured by the bi-plane method of discs. Doppler profiles appear consistent with impaired left ventricular relaxation (a sign of diastolic dysfunction). There is no evidence of left ventricular thrombus. Right Ventricle The right ventricular size is normal. No evidence of right ventricular hypertrophy. The right ventricular systolic function is normal. Left Atrium The left atrium is normal in size. The left atrial anterior-posterior dimension measures 36 mm (normal 15-40 mm). The LA volume is 39 mL. The LA volume index is 17.73 mL/m2 (normal indexed value is 16-34 mL/m2). The pulmonary venous flow profiles are normal. Pulmonary vein connections were not well seen. Right Atrium The right atrium is normal in size. The IVC is normal in size (2.1cm or less). The IVC measures 15 mm (normal <=21 mm). The IVC demonstrates normal collapse with inspiration which is consistent with normal RA pressure. Mitral Valve The mitral valve appears normal. The E/A ratio is 1.0. The E/E AVG is 7.7. There is no evidence of mitral stenosis. There is trace mitral regurgitation detected by spectral and color Doppler. Tricuspid Valve The tricuspid valve appears normal. There is no evidence of tricuspid stenosis. There is evidence of trace tricuspid regurgitation by color and spectral Doppler. Normal pulmonary pressure. The RV systolic pressure was estimated from the peak TV regurgitant velocity. The estimated RV systolic pressure is 6 mmHg assuming a right atrial pressure of 3 mmHg. Aortic Valve The aortic valve appears abnormal. The aortic valve is tricuspid. There is mild thickening of multiple aortic leaflets. There is no evidence of valvular aortic stenosis. Pulmonic Valve Pulmonary valve was not well visualized. The pulmonary valve appears normal. There is no evidence of pulmonic stenosis. There is no evidence of pulmonary regurgitation by color and spectral Doppler. Pericardium There is no evidence of pericardial effusion. There no evidence of a pleural effusion. Interatrial Septum The interatrial septum appears normal. Interventricular Septum Interventricular septal motion appears normal. General Findings The image quality was fair (3). Technique(s) used in the evaluation: Color flow Doppler and Spectral Doppler. The predominant rhythm during the study was sinus. Comparison Findings Compared to a prior TTE from 12/10/2017 no important changes. LVEF may be slightly better Wall Scoring Score Index: 1.118 Percent Normal: 88.2% The following segments are hypokinetic: apical septal and apex. All other segments are normal. us Sera GOFF CV ECHO ORDERABLES Final R esult documented in this encounter Visit Diagnoses Diagnosis Ischemic cardiomyopathy Other specified forms of chronic ischemic heart disease Ischemic cardiomyopathy Other specified forms of chronic ischemic heart disease documented in this encounter Additional Health Concerns Infection Onset Date Last Indicated Resolved Time CoV-Risk 07/03/2023 07/03/2023 07/14/2023 1:23 AM EST documented as of this encounter Care Teams Water Jet Loom Fixer Relationship Specialty Start Date End Date Mercy Masterson MD [email or web address] PCP - General Family Medicine 11/17/17 11/16/19 Mercy Masterson MD [email or web address] PCP - General Family Medicine 11/17/19 07/02/23 Pcp, Unknown PCP - General 07/03/23 documented as of this encounter Additional Source Comments The information contained in this document represents components of the legal health record. It is not the complete legal health record.[facility]
--- OUTSIDE RECORDS SUMMARY | 2025-03-17 02:19 | XMS_ITS | Encounter Summary ---
Author Organization [facility] Address [address] [facility] [address] [place] [address] Phone Care Team Providers Care Cellophane Bag Machine Operator Name Role Phone Mercy Masterson MD Primary Care Provider [phone] Mercy Masterson MD Primary Care Provider [phone]- [phone] Pcp, Unknown Primary Care Provider Unavailabl e Encounter Details Date Type Department Care Team (Late st Contact Info) Description 12/10/2017 Procedure Pass [facility], Ct Scan - [address] [address] Social History Tobacco Use Types Packs/Day Years [...] documented as of this encounter Care Teams Cellophane Bag Machine Operator Relationship Specialty Start Date End Date Mercy Masterson MD [email or web address] PCP - General Family Medicine 5/7/18 5/5/20 Mercy Masterson MD [email or web address] PCP - General Family Medicine 11/17/19 07/02/23 Pcp, Unknown PCP - General 07/03/23 documented as of this encounter Additional Source Comments The information contained in this document represents components of the legal health record. It is not the complete legal health record.[facility]
[2025-03-17 02:41] LABS: MANUAL DIFF FLAG NO
[2025-03-17 02:46] LABS: Hematocrit 38.7 % (42.0-52.0); Hemoglobin 13.6 g/dl (14.0-18.0); Imm Gran Abs Auto 0.01 X10*3/uL (0.00-0.03); Imm Gran Pct Auto 0.2 % (0.0-0.4); Lymphocytes Absolute Auto 2.0 X10*3/uL (1.2-4.9); Mean Corpuscular HGB Conc 35.1 g/dl (31.0-36.0); Mean Corpuscular Hemoglobin 29.8 pg (27.0-33.0); Mean Corpuscular Volume 84.9 fL (80.0-98.0); NRBC Abs Auto 0.000 X10*3/uL (0.0-0.012); NRBC Pct Auto 0.0 /100WBC (0.0-0.2); Platelet Count 154 X10*3/uL (160-400); Red Blood Count 4.56 X10*6/uL (4.60-5.80); White Blood Count 5.9 X10*3/uL (4.8-10.8)
[2025-03-17 02:50] LABS: COVID-19 Test Positive (Negative); IDNOW Serial# 08D9AD1C; IDNOW Serial# 58CA691E; Strep A Nucleic Acid Negative (Negative)
[2025-03-17 02:57] LABS: Alanine Aminotransferase 19 U/L (0-40); Albumin Level 4.3 g/dL (3.5-5.0); Alkaline Phosphatase 58 U/L (39-117); Anion Gap 11 (12-20); Aspartate Amino Transferase 26 U/L (5-37); Blood Urea Nitrogen 19 mg/dL (9-16); Calcium 8.8 mg/dL (8.4-10.2); Carbon Dioxide 22 mmol/L (22-29); Chloride 110 mmol/L (96-108); Creatinine Clr Calc Pharmacy 118.8; Estimated Glomerular Filt Rate > 60; Potassium 4.0 mmol/L (3.3-5.1); Sodium 139 mmol/L (135-145); Total Protein 7.0 g/dL (6.5-8.0)
[2025-03-17 03:01] LABS: IDNOW Serial# 55D5AD1C; Influenza B2 Negative (Negative)
[2025-03-17 03:25] VITALS: BP 122/90; PULSE 98; RESP 16; TEMP 36.7; O2SAT 97
== END 2025-03-17 03:26 | disposition home or self-care (01) ==
PROVIDERS: Emergency Provider Emergency Medicine
DX: U07.1 COVID-19 (principal); R59.1 Generalized enlarged lymph nodes; I10 Essential (primary) hypertension; I25.2 Old myocardial infarction; Z79.899 Other long term (current) drug therapy
CPT/HCPCS: 36415; 80048; 80076; 85025; 85652; 86140; 87502; 87635; 87651; 99283; 99284

== ENCOUNTER 2025-04-06 06:10 | Emergency (ER) | payer OTHER, SELFPAY ==
--- NOTE | ~2025-04-06 | XR_ITS ---
EXAMINATION: XR CHEST CLINICAL INFORMATION: Coughing COMPARISON: August 10, 2020. TECHNIQUE: Frontal view of the chest was obtained. FINDINGS: No hyperinflation. No consolidation, pleural effusion or pneumothorax. Cardiomediastinal silhouette size is normal. Multilevel spondylosis. XR/XR chest 1V IMPRESSION: No acute airspace disease. Stable chest. Electronically signed by: Steve Rose MD 04/06/2025 07:43 AM EDT
[2025-04-06 06:12] VITALS: BP 141/88; PULSE 100; RESP 15; TEMP 36.5; O2SAT 97; BMI 30.3
[2025-04-06 06:31] VITALS: BP 141/88; PULSE 100; RESP 15; TEMP 36.5; O2SAT 97
--- NOTE | 2025-04-06 06:39 | ED_ITS ---
HPI - Chest Pain General Chief Complaint: Chest Pain Stated Complaint: abd pain Time Seen by Provider: 04/06/25 06:33 Source: patient Mode of arrival: ambulatory Limitations: no limitations History of Present Illness ED Provider: DR. Singh HPI narrative: 45-year-old male came in for evaluation of right upper abdominal/right flank pain area on and off for 2 weeks patient was diagnosed with COVID infection 2 weeks ago ever since his symptoms has been lingering, +coughing with green sputum, no fever, no chills, no nausea, no vomiting. No history of intra-abdominal surgery in the past, no dysuria, no frequency urination. Related Data Previous Rx's ?Medication ?Instructions ?Recorded cyclobenzaprine 5 mg tablet 5 mg PO TID PRN muscle spa sm 7 05/13/23 days #21 tabs cyclobenzaprine 5 mg tablet 5 mg PO TID PRN muscle spa sm 7 09/23/23 days #21 tabs acetaminophen 500 mg tablet 500 mg PO Q6H PRN fever or pain 03/17/25 #30 tabs Allergies Allergy/AdvReac Type Severity Reaction Status Date / Time ibuprofen (From Motrin) Allergy Unknown Verified 04/06/25 06:17 Review of Systems 2 Review of Systems: All other systems are reviewed and are negative Constitutional: Reports as per HPI and Reports no additional constitutional complaints Eyes: Reports as per HPI and Reports no additional eye complaints Reports system reviewed and no additional complaints, except as documented Cardiovascular: Reports as per HPI and Reports no additional cardiovascular complaints Respiratory: Reports as per HPI and Reports no additional respiratory complaints Gastrointestinal: Reports as per HPI and Reports no additional gastrointestinal complaints Genitourinary: Reports no additional female genitourinary complaints Musculoskeletal: Reports no additional musculoskeletal complaints Skin/Breast: Reports system reviewed and no additional complaints, except as docu Psychiatric: Reports no additional psychiatric complaints Endocrine: Reports no additional endocrine complaints Hematologic/Lymphatic: Reports no additional hematologic/lymphatic complaints Allergic/Immunologic: Reports no additional allergic/immunologic complaints Reports system reviewed and no additional complaints, except as documented and Reports Abnormal speech present [facility] Past Medical History Medical History Myocardial infarct, old HTN (hypertension) Surgical History Stented coronary artery Social History Social History Alcohol intake: never Smoked in Last 30 Days: Yes Use of substances other than those prescribed or required for medical reasons: Yes Substance Use Type: Marijuana Advance Directives: No Do you have a plan to hurt others: No Plan Physical Exam 2 Vital Signs: Vital Signs: Last Vital Signs Temp 97.7 F 04/06/25 06:31 Pulse 100 04/06/25 06:31 Resp 15 04/06/25 06:31 BP 141/88 H 04/06/25 06:31 Pulse Ox 97 04/06/25 06:31 O2 Del Method Room Air 04/06/25 06:31 BMI result Body Mass Index 30.3 Vital signs have been reviewed and appear to be correct. Blood pressure elevated. Heart rate normal. Respiratory rate normal. Temperature normal. Oxygen saturation normal. Appearance: Alert. Oriented X3. No acute distress. Head: Normal external exam. Normocephalic. Atraumatic. No Em signs noted. No raccoon eyes noted Eyes: PERRLA. EOMI. Conjunctiva and sclera normal. Eyelids normal. ENT: TM's Normal. Pharynx normal. Uvula midline. Moist mucous membranes. No trismus noted. No drooling noted. No muffled voice noted. Neck: Normal inspection. Neck supple. FROM. No adenopathy. Thyroid Normal. No meningeal signs. No neck mass noted. CVS: Normal heart rate and rhythm. Heart sound normal. No murmurs noted. Pulses normal throughout. Respiratory: No respiratory distress. Painless inspiration. Breath sounds normal. No wheezes/rales/rhonchi noted. Chest nontender. No accessory muscle usage noted or decreased air movement noted. Abdomen: Soft and nontender. Bowel sounds normal in all 4 quadrants. No distention noted. No organomegaly noted. No visible injury noted. Back: No CVA tenderness. Full range of motion noted. Skin: Skin warm and dry. Normal skin color. Normal skin turgor. No rashes/lesions/lacerations noted. Extremities: No lower extremity edema. Extremities exhibit normal range of motion. Extremities nontender. Neuro: Oriented X 3. Cranial nerve exam: II-XII are grossly intact No motor deficit. No sensory deficit. Reflexes normal. Course Reevaluation(s) Reevaluation #1: Right-sided chest pain with coughing and movement after patient had a COVID-19 infection 2 weeks ago. Chest x-ray showed no acute pneumonia, normal WBCs, VSS O2 sat is 97% on room air. Will reassure and discharge home. Time: 08:59 Medical Decision Making Differential Diagnosis Differential Diagnoses: The differential diagnosis associated with the presentation includes (Pneumonia, pneumothorax, pleural effusion, chest wall pain, rib fracture, electrolyte derangement, severe anemia, pyelonephritis, UTI, pulmonary embolism, ACS.) Admission/Observation Consideration of admission/observation: Escalation of care including admission/observation considered Lab Data MDM Lab Attestation statement: I reviewed the patient's lab results. 04/06/25 06:49 04/06/25 06:49 Labs: Lab Results 04/06/25 04/06/25 Range/Units 06:49 06:50 WBC 8.5 (4.8-10.8) X10*3/uL RBC 4.92 (4.60-5.80) X10*6/uL Hgb 14.7 (14.0-18.0) g/dl Hct 42.4 (42.0-52.0) % MCV 86.2 (80.0-98.0) fL MCH 29.9 (27.0-33.0) pg MCHC 34.7 (31.0-36.0) g/dl RDW 12.8 (11.0-16.0) % Plt Count 161 (160-400) X10*3/uL MPV 11.5 (9.4-12.4) fL Immature Gran % (Auto) 0.4 (0.0-0.4) % Neut % (Auto) 70.4 (45-73) % Lymph % (Auto) 18.8 L (20-40) % [place] % (Auto) 7.0 (2-11) % Eos % (Auto) 3.2 (0-4) % Baso % (Auto) 0.2 (0-2) % Lymph # (Auto) 1.6 (1.2-4.9) X10*3/uL [place] # (Auto) 0.6 (0.1-1.2) X10*3/uL Eos # (Auto) 0.3 (0.0-0.4) X10*3/uL Baso # (Auto) 0.0 (0.0-0.2) X10*3/uL Abs Immat Gran (auto) 0.03 (0.00-0.03) X10*3/uL Absolute Neuts (auto) 6.0 (2.0-8.3) x10*3/uL Absolute Nucleated RBC 0.000 (0.0-0.012) X10*3/uL Nucleated RBC % (auto) 0.0 (0.0-0.2) /100WBC D-Dimer High Sensitivty 169 NG/ML Sodium 141 (135-145) mmol/L Potassium 3.9 (3.3-5.1) mmol/L Chloride 110 H (96-108) mmol/L Carbon Dioxide 24 (22-29) mmol/L Anion Gap 11 L (12-20) BUN 16 (9-16) mg/dL Creatinine 0.94 (0.5-1.4) mg/dL Estim Creat Clear Calc 121.1 Estimated GFR > 60 Random Glucose 106 (60-115) mg/dL Calcium 9.1 (8.4-10.2) mg/dL Total Bilirubin 0.3 (0.0-1.0) mg/dL AST 28 (5-37) U/L ALT 26 (0-40) U/L Alkaline Phosphatase 74 (39-117) U/L Troponin I High Sens 6.8 (<3.5-35.0) ng/L Total Protein 7.3 (6.5-8.0) g/dL Albumin 4.5 (3.5-5.0) g/dL Lipase 204 H (8-78) U/L COVID-19 (TERRELL) Negative (Negative) COVID-19 Clin Com See Note Influenza Type A (ROMMEL) Negative (Negative) Influenza Type B (ROMMEL) Negative (Negative) Influenza A & B Note See Note Independent Interpretation I performed an independent interpretation of an: Plain X-Ray (Chest: No acute intrathoracic pathology.) Radiology Impression Discussion of test interpretation with radiology: I have reviewed the radiologist's reading. Discharge Plan Discharge Clinical Impression: Atypical chest pain, Chest wall pain Patient Disposition: Home, Self-Care Instructions: Chest Wall Pain (ED) Prescriptions: No Action cyclobenzaprine 5 mg tablet 5 mg PO TID PRN (Reason: muscle spasm) 7 Days Qty: 21 0RF cyclobenzaprine 5 mg tablet 5 mg PO TID PRN (Reason: muscle spasm) 7 Days Qty: 21 0RF acetaminophen 500 mg tablet 500 mg PO Q6H PRN (Reason: fever or pain) Qty: 30 0RF Referrals: Sera Palmer PA-C [Primary Care Provider, Family Practice] Stand Alone Forms: Work/School Release Print Language: Anguillan
--- OUTSIDE RECORDS SUMMARY | 2025-04-06 06:39 | XMS_ITS | Encounter Summary ---
Author Organization [facility] Address [address] [address] Phone Care Team Providers Care Mortarman Name Role Phone Mercy Masterson MD Primary Care Provider [phone] Mercy Masterson MD Primary Care Provider [phone] Pcp, Unknown Primary Care Provider Unavailabl e Reason for Referral * Outpatient Procedure - Closed Specialty Diagnoses / Procedures Referred By Phyllis ram Referred To Contact Diagnoses Ischemic cardiomyopathy Procedures Adult Echo TTE Sera Palmer PA Phone: tel: fax: Referral ID Status Reason Start Date Expiration Date Visits Re quested Visits Authorized [id number] Closed 08/13/2018 08/13/2019 1 1 Encounter Details Date Type Department Care Team (Latest Contact Info) Description 08/13/2018 Ancillary Orders Virtual Department [address] [place] [address] Sera Palmer PA [address] [place] [phone] Ischemic cardiomyopathy Social History Tobacco Use Types [...] documented as of this encounter Care Teams Mortarman Relationship Specialty Start Date End Date Mercy Masterson MD PCP - General Family Medicine 11/17/17 11/16/19 Mercy Masterson MD PCP - General Family Medicine 11/17/19 07/02/23 Pcp, Unknown PCP - General 07/03/23 documented as of this encounter Additional Source Comments The information contained in this document represents components of the legal health record. It is not the complete legal health record.[facility]
--- OUTSIDE RECORDS SUMMARY | 2025-04-06 06:39 | XMS_ITS | Clinical Summary ---
Author Organization [facility] Address [address] [address] Phone Care Team Providers Care Production Planner Scheduler Name Role Phone Pcp, Unknown Primary Care [...] ecorded Are you denied basic needs s [facility] as food, clothing, or medical care? No 07/03/2023 In the past 12 months have y ou been in a relationship with a person who hurts, threatens, or tries to control you? No 07/03/2023 Are you denied basic needs s [facility] as food, clothing, or medical care? No [...] EST) SODIUM 141 133 - 146 mmol/L [facility] CHLORIDE 105 96 - 108 mmol/L [facility] POTASSIUM 4.4 3.3 - 5.1 mmol/L [facility] CO2 26 21 - 35 mmol/L [facility] BUN 15 6 - 19 mg/dL [facility] CREATININE 1.00 0.5 - 1.5 mg/dL [facility] GLUCOSE 108(H) 70 - 99 mg/dL [facility] CALCIUM 9.5 8.4 - 10.3 mg/dL [facility] EGFR 97 >59 mL/min/1.7 3m2 [facility] Comment:Estimated glomerular filtration rate calculated using the CKD-EPI refit equation. ANION GAP 14 10 - 20 mmol/L [facility] Blood 07/03/2023 7:30 AM EST 07/03/2023 7:38 AM EST us Zack Fraser MD LAB BLOOD ORDERABLES Final Resu lt [address] [id number] * (ABNORMAL) Lipid panel (12/10/2017 6:18 AM EDT) HDL 26 mg/dL [facility] Comment: Interpretation: Risk Level Males Decreased >45 mg/dL Average 40-45 mg/dL Increased <40 mg/dL CHOLESTEROL 188 0 - 240 mg/dL [facility] TRIGLYCERIDES 201(H) 30 - 160 mg/dL [facility] LDL 122 50 - 129 mg/dL [facility] Comment: LDL levels in terms of risk for coronary heart disease: <100 mg/dL: Optimal 100-129 mg/dL: Near or above optimal 130-159 mg/dL: Borderline high 160-189 mg/dL: High >190 mg/dL: Very High CARDIAC RISK RATIO 7.2(H) 3.4 - 5.0 C [facility] Blood 12/10/2017 6:18 AM EDT 12/10/2017 6:45 AM EDT Miya Gutierrez MD LAB BLOOD ORDERABLES Final Result [address] [address] from Last 3 Months or Most Recently Relevant to Health Maintenance Insurance SAFETY NET PARTIAL PARTIAL NET PARTIAL HEALTH SAFETY NET PARTIAL HEALTH SAFETY NET PARTIAL HEALTH SAFETY NET PARTIAL HEALTH SAFETY NET PARTIAL HEALTH SAFETY NET PARTIAL HEALTH SAFETY NET PARTIAL Advance Directives For more information, please contact: [phone] (9AM - 5PM [place], Friday-Friday) * Full Code (Presumed) (Latest Code Status on File) Date Activated Date Inactivated Comments 12/10/2017 6:05 AM 12/10/2017 6:33 PM Care Teams Production Planner Scheduler Relationship Specialty Start Date End Date Pcp, Unknown PCP - General 07/03/23 Additional Source Comments The information contained in this document represents components of the legal health record. It is not the complete legal health record.[facility]
--- OUTSIDE RECORDS SUMMARY | 2025-04-06 06:39 | XMS_ITS | Encounter Summary ---
Author Organization [facility] Address [address] [address] Phone Care Team Providers Care Speed Winder Name Role Phone Mercy Masterson MD Primary Care Provider [phone]- [phone] Mercy Masterson MD Primary Care Provider Pcp, Unknown Primary Care Provider Unavailabl e Encounter Details Date Type Department Care Team (Late st Contact Info) Description 11/28/2017 Procedure Pass [facility] Endoscopy Admitting Dept Virtual Department [address] [place] [address] Social History Tobacco Use Types Packs/Day Years [...] documented as of this encounter Care Teams Speed Winder Relationship Specialty Start Date End Date Mercy Masterson MD [email or web address] PCP - General Family Medicine 11/17/17 11/16/19 Mercy Masterson MD [email or web address] PCP - General Family Medicine 11/17/19 07/02/23 Pcp, Unknown PCP - General 07/03/23 documented as of this encounter Additional Source Comments The information contained in this document represents components of the legal health record. It is not the complete legal health record.[facility]
--- OUTSIDE RECORDS SUMMARY | 2025-04-06 06:39 | XMS_ITS | Encounter Summary ---
Author Organization [facility] Address [address] [address] Phone Care Team Providers Care Customer Complaint Service Supervisor Name Role Phone Mercy Masterson MD Primary Care Provider [phone]- [phone] Mercy Masterson MD Primary Care Provider Pcp, Unknown Primary Care Provider Unavailabl e Encounter Details Date Type Department Care Team (Latest Contact Info) Description 05/26/2018 Ancillary [facility] [address] [place] [address] Nick Morejon MD [address] [place] [id number] [email or web address] Coronary artery disease without angina pectoris, unspecified vessel or lesion type, unspecified whether kaibab or transplanted heart; Cardiomyopathy, unspecified type Social [...] unspecified vessel or lesion type, unspecified whether kaibab or transplanted heart Cardiomyopathy, unspecified type documented in this encounter Additional Health Concerns Infection Onset Date Last Indicated Resolved Time CoV-Risk 07/03/2023 07/03/2023 07/14/2023 1:23 AM EST documented as of this encounter Care Teams Customer Complaint Service Supervisor Relationship Specialty Start Date End Date Meryc Masterson MD [email or web address] PCP - General Family Medicine 11/17/17 11/16/19 Mercy Masterson MD [email or web address] PCP - General Family Medicine 11/17/19 07/02/23 Pcp, Unknown PCP - General 07/03/23 documented as of this encounter Additional Source Comments The information contained in this document represents components of the legal health record. It is not the complete legal health record.[facility]
--- OUTSIDE RECORDS SUMMARY | 2025-04-06 06:39 | XMS_ITS | Encounter Summary ---
Author Organization [facility] Address [address] [place] [phone] Phone Care Team Providers Care Regional Education Coordinator Name Role Phone Mercy Masterson MD Primary Care Provider [phone]- [phone] Mercy Masterson MD Primary Care Provider [phone]- [phone] Pcp, Unknown Primary Care Provider Unavailabl e Reason for Referral * Consultation (Elective) - Closed Specialty Diagnoses / Procedures Referred By Phyllis ram Referred To Contact Cardiac Rehabilitation Diagnoses NSTEMI (non-ST elevated myocardial infarction) Kin Garcia MD Phone: tel: fax: [email or web address] .[employer] [facility] [address] [place] [address] Phone: tel: Referral ID Status Reason Start Date Expiration Date Visits Re quested Visits Authorized [id number] Closed 02/03/2018 02/03/2019 1 1 Encounter Details Date Type Department Care Team (Late st Contact Info) Description 02/03/2018 Transcribe Orders Virtual Department [address] [place] [id number] Kin Garcia MD [address] [place] [phone] NSTEMI (non-ST elevated myocardial infarction) (Primary Dx) [...] Associated Diagnoses Order Schedule Ambulatory referral to [facility] Cardiac Rehab Outpatient Referral Routine NSTEMI [...] documented as of this encounter Care Teams Regional Education Coordinator Relationship Specialty Start Date End Date [...] complete legal health record.[facility]
--- OUTSIDE RECORDS SUMMARY | 2025-04-06 06:39 | XMS_ITS | Encounter Summary ---
Author Organization [facility] Address [address] [facility] [address] [place] [address] Phone Care Team Providers Care Nutrition Partner Name Role Phone Mercy Masterson MD Primary Care Provider [phone]- [phone] Mercy Masterson MD Primary Care Provider Pcp, Unknown Primary Care Provider Unavailabl e Encounter Details Date Type Department Care Team (Late st Contact Info) Description 06/25/2018 Ancillary Orders Virtual Department [address] [place] [address] Kin Garcia MD [address] [place] [address] [phone] [email or web address] Solitary pulmonary nodule Social History Tobacco Use [...] documented as of this encounter Care Teams Nutrition Partner Relationship Specialty Start Date End Date Mercy Masterson MD [email or web address] PCP - General Family Medicine 11/17/17 11/16/19 Mercy Masterson MD [email or web address] PCP - General Family Medicine 11/17/19 07/02/23 Pcp, Unknown PCP - General 07/03/23 documented as of this encounter Additional Source Comments The information contained in this document represents components of the legal health record. It is not the complete legal health record.[facility]
--- OUTSIDE RECORDS SUMMARY | 2025-04-06 06:39 | XMS_ITS | Encounter Summary ---
Author Organization [facility] Address [address] [facility] [address] [place] [phone] Phone Care Team Providers Care Operations Staff Specialist Security Name Role Phone Mercy Masterson MD Primary Care Provider [phone]- [phone] Mercy Masterson MD Primary Care Provider +1- [phone] Pcp, Unknown Primary Care Provider Unavailabl e Encounter Details Date Type Department Care Team (Late st Contact Info) Description 12/10/2017 Procedure Pass [facility], Ct Scan - [address] [address] Social History Tobacco Use Types Packs/Day Years [...] documented as of this encounter Care Teams Operations Staff Specialist Security Relationship Specialty Start Date End Date Mercy Masterson MD [email or web address] PCP - General Family Medicine 5/7/18 5/5/20 Mercy Masterson MD [email or web address] PCP - General Family Medicine 11/17/19 07/02/23 Pcp, Unknown PCP - General 07/03/23 documented as of this encounter Additional Source Comments The information contained in this document represents components of the legal health record. It is not the complete legal health record.[facility]
[2025-04-06 06:56] LABS: MANUAL DIFF FLAG NO
--- NOTE | 2025-04-06 07:08 | PC.NURSE ---
This RN assumed care of patient @ 0700 Patient c/o right flank pain rated 7/10 Patient has cough with green sputum Patient was positive for covid 2 weeks ago Denies fever, chills, N/V O2 98% RA, VSS Blood work collected/sent Plan of care on going
[2025-04-06 07:10] LABS: D Dimer High Sensitivity 169 NG/ML
[2025-04-06 07:13] LABS: Alanine Aminotransferase 26 U/L (0-40); Albumin Level 4.5 g/dL (3.5-5.0); Alkaline Phosphatase 74 U/L (39-117); Anion Gap 11 (12-20); Aspartate Amino Transferase 28 U/L (5-37); Blood Urea Nitrogen 16 mg/dL (9-16); Calcium 9.1 mg/dL (8.4-10.2); Carbon Dioxide 24 mmol/L (22-29); Chloride 110 mmol/L (96-108); Creatinine Clr Calc Pharmacy 121.1; Estimated Glomerular Filt Rate > 60; Lipase 204 U/L (8-78); Potassium 3.9 mmol/L (3.3-5.1); Sodium 141 mmol/L (135-145); Total Protein 7.3 g/dL (6.5-8.0)
[2025-04-06 07:20] LABS: Troponin-I High Sensitivity 6.8 ng/L (<3.5-35.0)
[2025-04-06 07:33] LABS: COVID-19 Test Negative (Negative); IDNOW Serial# 55D5AD1C
[2025-04-06 07:34] LABS: IDNOW Serial# 58CA691E; Influenza B2 Negative (Negative)
[2025-04-06 07:41] LABS: Hematocrit 42.4 % (42.0-52.0); Hemoglobin 14.7 g/dl (14.0-18.0); Imm Gran Abs Auto 0.03 X10*3/uL (0.00-0.03); Imm Gran Pct Auto 0.4 % (0.0-0.4); Lymphocytes Absolute Auto 1.6 X10*3/uL (1.2-4.9); Mean Corpuscular HGB Conc 34.7 g/dl (31.0-36.0); Mean Corpuscular Hemoglobin 29.9 pg (27.0-33.0); Mean Corpuscular Volume 86.2 fL (80.0-98.0); NRBC Abs Auto 0.000 X10*3/uL (0.0-0.012); NRBC Pct Auto 0.0 /100WBC (0.0-0.2); Platelet Count 161 X10*3/uL (160-400); Red Blood Count 4.92 X10*6/uL (4.60-5.80); White Blood Count 8.5 X10*3/uL (4.8-10.8)
[2025-04-06 09:14] LABS: Appearance Urine Clear; Glucose Urine UA Negative (Negative); PH 5.5 (5.0-9.0); Specific Gravity - Urine >= 1.030 (1.005-1.025)
[2025-04-06 10:06] VITALS: BP 141/88; PULSE 100; RESP 15; TEMP 36.5; O2SAT 97
== END 2025-04-06 10:56 | disposition home or self-care (01) ==
PROVIDERS: Emergency Provider Emergency Medicine; PCP Physician Assistant Medical
DX: R07.89 Other chest pain (principal); Z03.818 Encounter for observation for suspected exposure to other biological agents ruled out; U07.1 COVID-19
CPT/HCPCS: 36415; 71045; 80053; 81003; 83690; 84484; 85025; 85379; 87502; 87635; 99283; 99284

== ENCOUNTER → 2025-04-06 06:38 | Outpatient (BNV) | payer OTHER, SELFPAY | PROVIDERS: Emergency Provider Emergency Medicine; PCP Physician Assistant Medical; Visit Provider Radiology Diagnostic Radiology | DX: R05.9 Cough, unspecified (principal) | CPT/HCPCS: 71045 ==